=== PATIENT | male | born 1990 | race Caucasian/White ===

== ENCOUNTER 2019-09-26 21:57 | Emergency (ER) | payer OTHER, SELFPAY ==
[~2019-09-26] VITALS: Ht 182.9 cm; Wt 81.8 kg
[2019-09-26 22:00] VITALS: BP 128/86
[2019-09-26] MEDS ORDERED: rabies vaccine (PCEC)/PF 2.5 unit kit IMVAC ONE (22:25)
== END 2019-09-26 22:45 | disposition home or self-care (01) ==
LOC: ER 21:57
DX: Z20.3 Contact with and (suspected) exposure to rabies (principal)
CPT/HCPCS: 90471; 90675; 99283

== ENCOUNTER 2019-09-27 12:46 | Emergency (ER) | payer OTHER, SELFPAY ==
[~2019-09-27] VITALS: Ht 182.9 cm; Wt 81.0 kg
[2019-09-27 12:52] VITALS: BP 131/74
[2019-09-27] MEDS ORDERED: rabies immune globulin/PF 150 unit/ml inj IMVAC ONE (13:00)
--- NOTE | 2019-09-28 12:18 | NUR ---
PT. CALLED AND REQUESTED US TO CALL IN THE REST OF HIS RABIES VACCINE TO THE PHARMACY. I ASKED HIM WHO WAS GOING TO BE GIVEN THE THE SHOT TO HIM..... HE SAID HE CALLED [facility] ON [address], AND THEY TOLD HIM THAT THEY HAVE 2 CERTIFIED PHARMACIST THAT COULD GIVE THE VACCINE. I CALLED AND SPOKE TO THE PHARMASIST NAMED ED. HE VERAFIED THAT HE COULD GIVE RABIES VACCINATIONS. I SPOKE TO DR. DUNLAP WHO GAVE ME A VERBAL ORDER TO CALL IN RX FOR RABIVERT 2.5 UNITS/1ML IM FOR September, , OCTOBER 09. I CALLED AND SPOKE TO ED THE PHARASIST. I CALLED PT. BACK AT SPOKE WITH LATRICIA..... I LET HIM KNOW THAT I CALLED IN RX. TO THE [facility]. I ALSO TOLD HIM THAT THE PHARMASIST WANTED TO TALK TO THE PT. ABOUT INSURANCE AND POSSIBLE NEED OF PREOTHERIZATION BEFORE HE ORDERED THE DRUG. I ALSO GAVE THE PHARMASIST THE PT'S PHONE NUMBER.
== END 2019-09-27 13:42 | disposition home or self-care (01) ==
LOC: ER 12:46
DX: Z29.14 Encounter for prophylactic rabies immune globulin (principal)
CPT/HCPCS: 90375; 90471; 96372; 99281; 99283